=== PATIENT | female | born 1995 | race Caucasian/White ===

== ENCOUNTER 2016-06-13 17:52 | Observation (INO) | payer BC, OTHER ==
[2016-06-13] MEDS ORDERED: Sodium Chloride 0.9% 1000 ML 1,000 ML IV STA (18:18)
[2016-06-13] MEDS ORDERED: Ativan 2 MG/1 ML VIAL IV ONE (18:21)
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
[2016-06-13] MEDS ORDERED: Sodium Chloride 0.9% 1000 ML 2,000 ML ONE (18:27)
[2016-06-13] MEDS ORDERED: Ativan 2 MG/1 ML VIAL ONE ×2 (18:27→18:36)
[2016-06-13 18:30] LABS: BASOPHIL % 0.3 % (0.0-0.4); Eosinophil % 0.4 % (0.00-5.0); Mean Cell Volume 92.7 fl (78-100); Mean Corpuscular Hemoglobin 33.4 pg (26-32); Mean Platelet Volume 11.3 fl (6-9.5); Monocytes % 6.3 % (0.0-12.0); Platelet Count 161 K/mm3 (150-450); Red Cell Distribution Width 12.5 % (11.5-14.0); White Blood Count 9.7 K/mm3 (4.0-10.5)
[2016-06-13 18:39] LABS: ALBUMIN 2.9 g/dL (3.4-5.0); ALKALINE PHOSPHATASE 50 U/L (46-116); ANION GAP 19.7 MEQ/L (5-15); BLOOD UREA NITROGEN 8 mg/dL (9-20); CHLORIDE 102 mEq/L (98-107); Carbon Dioxide 18.8 mEq/L (21-32); Glucose 103 MG/DL (70-110); Potassium 3.4 mEq/L (3.5-5.1); SGOT/AST 17 U/L (15-37); SGPT/ALT 10 U/L (12-78); SODIUM 137 mEq/L (136-145); Total Protein 6.9 gm/dL (6.4-8.2)
[2016-06-13 18:45] LABS: COMPLETE URINE MICROSCOPIC? NO; Collection Type CATH; Ph 5.5 (5-6)
[2016-06-13 18:52] LABS: BILIRUBIN,TOTAL 0.1 mg/dL (0.2-1.0)
[2016-06-13 18:53] LABS: ACETAMINOPHEN < 2.0 ug/ml (10-30)
[2016-06-13] MEDS ORDERED: Ativan 2 MG/1 ML VIAL IV PRN (19:58)
[2016-06-13] MEDS: Sodium Chloride 0.9% 1000 ML 1,000 ML IV SCH (20:12)
[2016-06-14] MEDS: Sodium Chloride 0.9% 1000 ML 1,000 ML IV SCH ×3 (05:10→23:08)
[2016-06-14 05:42] LABS: Mean Cell Volume 93.9 fl (78-100); Mean Platelet Volume 11.3 fl (6-9.5); Platelet Count 178 K/mm3 (150-450); White Blood Count 9.6 K/mm3 (4.0-10.5)
[2016-06-14 05:49] LABS: Mean Corpuscular Hemoglobin 32.8 pg (26-32)
[2016-06-14 06:09] LABS: ALBUMIN 2.5 g/dL (3.4-5.0); ALKALINE PHOSPHATASE 44 U/L (46-116); ANION GAP 14.1 MEQ/L (5-15); BILIRUBIN,TOTAL 0.2 mg/dL (0.2-1.0); BLOOD UREA NITROGEN 6 mg/dL (9-20); CHLORIDE 107 mEq/L (98-107); Carbon Dioxide 22.9 mEq/L (21-32); Glucose 81 MG/DL (70-110); Potassium 3.7 mEq/L (3.5-5.1); SGOT/AST 15 U/L (15-37); SGPT/ALT 9 U/L (12-78); SODIUM 140 mEq/L (136-145)
[2016-06-14 08:10] LABS: BAND 1 % (0.0-2.0); Metamyelocyte 1 %; Platelet Estimate NORMAL (NORMAL); Total Cells Counted 100
--- NOTE | 2016-06-14 09:24 | XRAY ---
Indication: Overdose. 2-dimensional OB ultrasound performed. Comparison: None There is a single viable intrauterine currently in breech presentation. Four-chamber heart, three-vessel umbilical cord and cord insertion are not well seen due to early age. heart rate is 150 bpm. Visualized portions of the head, spine, stomach, kidneys, and bladder appear unremarkable. Placenta is anterior without abruption/previa. BPD measures 2.90 cm corresponding to 15 weeks 2 days. HC measures 10.84 cm corresponding to 15 weeks 1 day. AC measures 8.70 cm corresponding to 15 weeks 0 days. FL measures 1.53 cm corresponding to 14 weeks 4 days. TORRIE is 9.6 cm. Impression: Single viable intrauterine with mean gestational age 15 weeks 0 days. Expected date confinement is December 06, 2016.
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
[2016-06-14 21:38] VITALS: O2SAT 97
[2016-06-15 04:49] VITALS: BP 93/61
[2016-06-15 08:08] VITALS: PULSE 86
== END 2016-06-15 09:55 | disposition home or self-care (01) ==
LOC: ED 17:52 → ICU 19:49
PROVIDERS: ADMIT Family Medicine; ATTEND Family Medicine
DX: T48.1X2A Poisoning by skeletal muscle relaxants [neuromuscular blocking agents], intentional self-harm, initial encounter (principal); T42.6X2A Poisoning by other antiepileptic and sedative-hypnotic drugs, intentional self-harm, initial encounter; Z33.1 Pregnant state, incidental
CPT/HCPCS: 36415; 76805; 80053; 80307; 80320; 81002; 83986; 84703; 85025; 90791; 93005; 93041; 96360; 96374; 99284; 99285; 99291; G0378; G0481; J2060; P9612; Q3014

== ENCOUNTER 2020-01-21 14:24 | Emergency (ER) | payer BC, OTHER ==
[2020-01-21] MEDS ORDERED: Zithromax 250 MG TABLET ONE (14:50)
[2020-01-21] MEDS: Zithromax 250 MG TABLET PO ONE (14:52)
[2020-01-21] MEDS ORDERED: Rocephin 1000 MG INJ ONE (14:54)
[2020-01-21] MEDS ORDERED: XYLOCAINE 1% HCL 20 ML MDV ONE (14:54)
[2020-01-21] MEDS: Rocephin 1000 MG INJ IM ONE (14:57)
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
[2020-01-21 15:00] LABS: Appearance SLIGHTLY CLOUDY (CLEAR); Bacteria RARE /HPF (NEGATIVE); Bilirubin NEGATIVE (NEGATIVE); Blood NEGATIVE Ery/ul (0-5); Epithelial Cells RARE /HPF (FEW); Glucose NEGATIVE (NEGATIVE); Ketones NEGATIVE (NEGATIVE); Leukocyte Esterase TRACE (NEGATIVE); Nitrite NEGATIVE (NEGATIVE); Protein,Urine Dip NEGATIVE (Negative); RBC 0-2 /HPF (0-2); Urobilinogen NEGATIVE mg/dL (0-1)
[2020-01-21 16:23] LABS: Clue Cells None Seen
[2020-01-21 16:24] LABS: Bacteria Few; Red Blood Cells None Seen; Trichomonas None Seen; White Blood Cells Few; Yeast None Seen
[2020-01-21 16:31] LABS: CHLAMYDIA DNA NOT DETECTED (NEGATIVE); GC DNA Probe DETECTED (NEGATIVE)
== END 2020-01-21 16:06 | disposition home or self-care (01) ==
LOC: ED 14:24
DX: A54.9 Gonococcal infection, unspecified (principal)
CPT/HCPCS: 36415; 81001; 84703; 86592; 86704; 86706; 86709; 86803; 87210; 87340; 87389; 87491; 87591; 96372; 99284; J0696; A9270-GY

== ENCOUNTER 2020-02-16 11:32 | Emergency (ER) | payer OTHER ==
[2020-02-16] MEDS ORDERED: Ativan 2 MG/1 ML VIAL ONE ×2 (11:39→12:24)
[2020-02-16] MEDS ORDERED: Zofran 4 MG/2 ML VIAL ONE (11:43)
[2020-02-16] MEDS ORDERED: Zofran 4 MG/2 ML VIAL IV ONE (11:44)
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
[2020-02-16] MEDS ORDERED: Sodium Chloride 0.9% 1000 ML 1,000 ML IV SCH ×2 (11:45→13:00)
[2020-02-16] MEDS ORDERED: Ativan 2 MG/1 ML VIAL IV ONE ×2 (11:46→12:26)
[2020-02-16] MEDS ORDERED: Sodium Chloride 0.9% 1000 ML 1,000 ML ONE ×2 (11:51→12:55)
[2020-02-16 12:06] LABS: Absolute Neutrophil Ct (ANC) 7.55 (1.4-6.9); BASOPHIL % 0.5 % (0.0-0.4); Basophil (Absolute #) 0.06 (0-0.4); Eosinophil (Absolute #) 0.39 (0-0.5); Hemoglobin 14.6 gm/dl (12.0-16.0); Lymphocyte (Absolute #) 3.94 (1.0-4.6); Lymphocytes % 30.1 % (24.0-44.0); Mean Cell Volume 99.1 fl (78-100); Mean Corpuscular Hemoglobin 32.9 pg (26-32); Mean Corpuscular Hgb Concent. 33.2 g/dl (32-36); Mean Platelet Volume 11.6 fl (7.5-11.0); Monocyte (Absolute #) 1.13 (0.0-1.3); Monocytes % 8.6 % (0.0-12.0); Neutrophil % 57.8 % (36.0-66.0); Platelet Count 285 K/mm3 (150-450); Red Blood Count 4.44 M/mm3 (4.1-5.4); Red Cell Distribution Width 13.8 % (11.5-14.0); White Blood Count 13.1 K/mm3 (4.0-10.5)
[2020-02-16 12:12] LABS: ALBUMIN 5.1 g/dL (3.5-5.0); ALKALINE PHOSPHATASE 76 U/L (38-126); ANION GAP 13.1 MEQ/L (5-15); BLOOD UREA NITROGEN 13 mg/dL (7-17); CHLORIDE 108 mmol/L (98-107); Calcium 9.6 mg/dL (8.4-10.2); Carbon Dioxide 23 mmol/L (22-30); Creatinine 1 0.73 mg/dL (0.52-1.04); EST GLOMERULAR FILTRATION RATE > 60.0 ML/MIN; Glucose 139 mg/dL (74-106); Potassium 3.6 mmol/L (3.5-5.1); SGOT/AST 36 U/L (14-36); SGPT/ALT 19 U/L (0-35); SODIUM 140 mmol/L (137-145); Total Protein 8.3 g/dL (6.3-8.2)
[2020-02-16 12:23] LABS: ACETAMINOPHEN < 10 ug/ml (10-30); SALICYLATE < 1.0 mg/dL (2-20)
[2020-02-16 12:24] LABS: ETHYL ALCOHOL < 10 mg/dL (0-10)
[2020-02-16 12:45] LABS: Appearance SLIGHTLY CLOUDY (CLEAR); Bilirubin NEGATIVE (NEGATIVE); Blood NEGATIVE Ery/ul (0-5); Epithelial Cells RARE /HPF (FEW); Glucose NEGATIVE (NEGATIVE); Ketones SMALL (NEGATIVE); Leukocyte Esterase SMALL (NEGATIVE); Mucus MANY /HPF (NEGATIVE); Nitrite NEGATIVE (NEGATIVE); Protein,Urine Dip 30 (Negative); RBC 0-2 /HPF (0-2); Specific Gravity 1.028 (1.005-1.025); Urobilinogen NEGATIVE mg/dL (0-1); WBC 0-2 /HPF (0-5)
[2020-02-16 13:12] LABS: Amphetamine,Urine NEGATIVE (NEGATIVE); Barbiturate,Urine NEGATIVE (NEGATIVE); Benzodiazepine,Urine NEGATIVE (NEGATIVE); Cocaine,Urine NEGATIVE (NEGATIVE); Methadone,Urine NEGATIVE (NEGATIVE); Opiate,Urine NEGATIVE (NEGATIVE); PCP,Urine NEGATIVE (NEGATIVE)
[2020-02-16 13:19] VITALS: O2SAT 98
[2020-02-16 13:44] LABS: THC,Urine POSITIVE (NEGATIVE)
[2020-02-16 13:57] VITALS: BP 112/69; PULSE 102
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
== END 2020-02-16 13:57 | disposition home or self-care (01) ==
LOC: ED 11:32
DX: F41.9 Anxiety disorder, unspecified (principal); F31.9 Bipolar disorder, unspecified; G40.909 Epilepsy, unspecified, not intractable, without status epilepticus; Z79.899 Other long term (current) drug therapy
CPT/HCPCS: 36000; 36415; 70450; 80053; 80307; 81001; 82962; 83605; 84703; 85025; 87086; 93005; 93041; 96360; 96374; 96375; 96376; 99285; G0480; P9612; J2060; J2405

== ENCOUNTER 2020-03-09 14:16 | Emergency (ER) | payer OTHER ==
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
[2020-03-09 15:17] LABS: Absolute Neutrophil Ct (ANC) 4.46 (1.4-6.9); BASOPHIL % 0.9 % (0.0-0.4); Basophil (Absolute #) 0.06 (0-0.4); Eosinophil % 1.8 % (0.00-5.0); Eosinophil (Absolute #) 0.12 (0-0.5); Hematocrit 41.6 % (35-47); Hemoglobin 14.2 gm/dl (12.0-16.0); Lymphocyte (Absolute #) 1.43 (1.0-4.6); Mean Cell Volume 97.4 fl (78-100); Mean Corpuscular Hemoglobin 33.3 pg (26-32); Mean Corpuscular Hgb Concent. 34.1 g/dl (32-36); Mean Platelet Volume 10.7 fl (7.5-11.0); Monocyte (Absolute #) 0.44 (0.0-1.3); Monocytes % 6.8 % (0.0-12.0); Neutrophil % 68.5 % (36.0-66.0); Platelet Count 214 K/mm3 (150-450); Red Blood Count 4.27 M/mm3 (4.1-5.4); Red Cell Distribution Width 13.2 % (11.5-14.0); White Blood Count 6.5 K/mm3 (4.0-10.5)
[2020-03-09 15:35] LABS: ALBUMIN 4.6 g/dL (3.5-5.0); ALKALINE PHOSPHATASE 62 U/L (38-126); BLOOD UREA NITROGEN 15 mg/dL (7-17); CHLORIDE 106 mmol/L (98-107); Calcium 9.4 mg/dL (8.4-10.2); Carbon Dioxide 24 mmol/L (22-30); Creatinine 1 0.84 mg/dL (0.52-1.04); EST GLOMERULAR FILTRATION RATE > 60.0 ML/MIN; Glucose 90 mg/dL (74-106); Potassium 4.2 mmol/L (3.5-5.1); SGOT/AST 26 U/L (14-36); SGPT/ALT 15 U/L (0-35); SODIUM 138 mmol/L (137-145); Total Protein 7.8 g/dL (6.3-8.2)
[2020-03-09 16:01] LABS: Appearance CLOUDY (CLEAR); Bilirubin NEGATIVE (NEGATIVE); Blood NEGATIVE Ery/ul (0-5); Glucose NEGATIVE (NEGATIVE); Ketones TRACE (NEGATIVE); Leukocyte Esterase NEGATIVE (NEGATIVE); Mucus SLIGHT /HPF (NEGATIVE); Nitrite NEGATIVE (NEGATIVE); Protein,Urine Dip 30 (Negative); RBC 0-2 /HPF (0-2); Specific Gravity 1.014 (1.005-1.025); Urobilinogen NEGATIVE mg/dL (0-1)
[2020-03-09 16:15] VITALS: BP 110/66; PULSE 88; O2SAT 98
== END 2020-03-09 16:19 | disposition home or self-care (01) ==
LOC: ED 14:16
DX: G40.909 Epilepsy, unspecified, not intractable, without status epilepticus (principal)
CPT/HCPCS: 36415; 80053; 81001; 84703; 85025; 99283

== ENCOUNTER 2020-03-11 11:07 | Emergency (ER) | payer OTHER ==
[2020-03-11] MEDS ORDERED: Ativan 2 MG/1 ML VIAL IV ONE (11:12)
[2020-03-11] MEDS ORDERED: Ativan 2 MG/1 ML VIAL ONE (11:15)
[2020-03-11] MEDS ORDERED: Sodium Chloride 0.9% 1000 ML 1,000 ML IV SCH (11:15)
[2020-03-11] MEDS ORDERED: Sodium Chloride 0.9% 1000 ML 1,000 ML ONE (11:20)
--- NOTE | 2020-03-11 11:47 | XRAY ---
Indication: Aspiration. Comparison: None Portable chest demonstrates normal heart, lungs, and bony thorax.
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
[2020-03-11 11:58] LABS: Absolute Neutrophil Ct (ANC) 3.96 (1.4-6.9); BASOPHIL % 0.9 % (0.0-0.4); Basophil (Absolute #) 0.06 (0-0.4); Eosinophil (Absolute #) 0.19 (0-0.5); Hemoglobin 15.5 gm/dl (12.0-16.0); Lymphocytes % 26.6 % (24.0-44.0); Mean Cell Volume 98.9 fl (78-100); Mean Corpuscular Hemoglobin 34.1 pg (26-32); Mean Corpuscular Hgb Concent. 34.4 g/dl (32-36); Mean Platelet Volume 12.8 fl (7.5-11.0); Monocyte (Absolute #) 0.48 (0.0-1.3); Monocytes % 7.5 % (0.0-12.0); Platelet Count 195 K/mm3 (150-450); Red Blood Count 4.55 M/mm3 (4.1-5.4); Red Cell Distribution Width 13.4 % (11.5-14.0); White Blood Count 6.4 K/mm3 (4.0-10.5)
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
[2020-03-11] MEDS ORDERED: Keppra 500 MG/5 ML*** 1,000 MG in D5w 100ML Mini Bag 100 ML 100 ML IV ONE (12:24)
[2020-03-11] MEDS ORDERED: Keppra 500 MG/5 ML ONE (12:30)
[2020-03-11] MEDS ORDERED: D5w 100ML Mini Bag 100 ML 100 ML IV ONE (12:30)
[2020-03-11 12:39] LABS: ALBUMIN 4.6 g/dL (3.5-5.0); ALKALINE PHOSPHATASE 61 U/L (38-126); ANION GAP 12.9 MEQ/L (5-15); BLOOD UREA NITROGEN 16 mg/dL (7-17); CHLORIDE 107 mmol/L (98-107); Calcium 9.6 mg/dL (8.4-10.2); Carbon Dioxide 22 mmol/L (22-30); Creatinine 1 0.87 mg/dL (0.52-1.04); EST GLOMERULAR FILTRATION RATE > 60.0 ML/MIN; Glucose 94 mg/dL (74-106); Potassium 4.3 mmol/L (3.5-5.1); SGOT/AST 21 U/L (14-36); SGPT/ALT 13 U/L (0-35); SODIUM 137 mmol/L (137-145); Total Protein 7.5 g/dL (6.3-8.2)
[2020-03-11 12:45] LABS: ACETAMINOPHEN < 10 ug/ml (10-30); ETHYL ALCOHOL < 10 mg/dL (0-10); SALICYLATE < 1.0 mg/dL (2-20)
[2020-03-11 12:58] LABS: Appearance SLIGHTLY CLOUDY (CLEAR); Bilirubin NEGATIVE (NEGATIVE); Blood NEGATIVE Ery/ul (0-5); Epithelial Cells RARE /HPF (FEW); Glucose NEGATIVE (NEGATIVE); Ketones SMALL (NEGATIVE); Leukocyte Esterase NEGATIVE (NEGATIVE); Mucus SLIGHT /HPF (NEGATIVE); Nitrite NEGATIVE (NEGATIVE); Protein,Urine Dip 30 (Negative); Urobilinogen NEGATIVE mg/dL (0-1); WBC 0-2 /HPF (0-5)
[2020-03-11 13:09] LABS: Amphetamine,Urine NEGATIVE (NEGATIVE); Barbiturate,Urine NEGATIVE (NEGATIVE); Benzodiazepine,Urine NEGATIVE (NEGATIVE); Cocaine,Urine NEGATIVE (NEGATIVE); Methadone,Urine NEGATIVE (NEGATIVE); Opiate,Urine NEGATIVE (NEGATIVE); PCP,Urine NEGATIVE (NEGATIVE); THC,Urine POSITIVE (NEGATIVE)
[2020-03-11 15:07] VITALS: BP 106/68; PULSE 87
[2020-03-12 02:43] VITALS: O2SAT 99
== END 2020-03-11 16:19 | disposition short-term general hospital (02) ==
LOC: ED 11:07
DX: G40.909 Epilepsy, unspecified, not intractable, without status epilepticus (principal)
CPT/HCPCS: 36000; 36415; 70450; 71045; 72125; 80053; 80307; 81001; 84703; 85025; 87040; 93005; 93041; 96360; 96361; 96374; 99285; G0480; J1953; J2060

== ENCOUNTER 2020-04-28 23:32 | Emergency (ER) | payer OTHER ==
[2020-04-29 00:39] VITALS: O2SAT 98
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
[2020-04-29 01:15] VITALS: BP 107/75; PULSE 52
== END 2020-04-29 01:16 | disposition home or self-care (01) ==
LOC: ED 23:32
DX: U07.1 COVID-19 (principal); R51.9 Headache, unspecified; R11.10 Vomiting, unspecified; R68.83 Chills (without fever); R43.8 Other disturbances of smell and taste; M79.10 Myalgia, unspecified site
CPT/HCPCS: 99283; U0003

== ENCOUNTER 2020-11-28 08:37 | Emergency (ER) | payer OTHER ==
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
[2020-11-28 08:54] VITALS: O2SAT 97
[2020-11-28 09:22] LABS: Absolute Neutrophil Ct (ANC) 4.91 (1.4-6.9); BASOPHIL % 0.4 % (0.0-0.4); Basophil (Absolute #) 0.03 (0-0.4); Eosinophil % 3.5 % (0.00-5.0); Eosinophil (Absolute #) 0.26 (0-0.5); Hematocrit 43.2 % (35-47); Hemoglobin 14.2 gm/dl (12.0-16.0); Lymphocyte (Absolute #) 1.53 (1.0-4.6); Lymphocytes % 20.8 % (24.0-44.0); Mean Cell Volume 98.2 fl (78-100); Mean Corpuscular Hemoglobin 32.3 pg (26-32); Mean Corpuscular Hgb Concent. 32.9 g/dl (32-36); Monocyte (Absolute #) 0.61 (0.0-1.3); Monocytes % 8.3 % (0.0-12.0); Platelet Count 199 K/mm3 (150-450); Red Cell Distribution Width 12.9 % (11.5-14.0); White Blood Count 7.3 K/mm3 (4.0-10.5)
[2020-11-28 09:23] LABS: ACETAMINOPHEN < 10 ug/ml (10-30); ALBUMIN 4.4 g/dL (3.5-5.0); ALKALINE PHOSPHATASE 51 U/L (38-126); ANION GAP 20.1 MEQ/L (5-15); BLOOD UREA NITROGEN 12 mg/dL (7-17); CHLORIDE 107 mmol/L (98-107); Calcium 9.4 mg/dL (8.4-10.2); Carbon Dioxide 17 mmol/L (22-30); Creatinine 1 0.85 mg/dL (0.52-1.04); EST GLOMERULAR FILTRATION RATE > 60.0 ML/MIN; ETHYL ALCOHOL < 10 mg/dL (0-10); Glucose 121 mg/dL (74-106); Potassium 4.1 mmol/L (3.5-5.1); SALICYLATE < 1.0 mg/dL (2-20); SGOT/AST 22 U/L (14-36); SGPT/ALT 13 U/L (0-35); SODIUM 140 mmol/L (137-145); Total Protein 7.2 g/dL (6.3-8.2)
[2020-11-28 09:25] LABS: Appearance CLEAR (CLEAR); Bilirubin NEGATIVE (NEGATIVE); Blood SMALL Ery/ul (0-5); Epithelial Cells RARE /HPF (FEW); Glucose NEGATIVE (NEGATIVE); Hyaline Casts 0-2 /LPF (0-2); Ketones NEGATIVE (NEGATIVE); Leukocyte Esterase NEGATIVE (NEGATIVE); Nitrite NEGATIVE (NEGATIVE); Protein,Urine Dip 30 (Negative); Specific Gravity 1.016 (1.005-1.025); Urobilinogen NEGATIVE mg/dL (0-1); WBC 0-2 /HPF (0-5)
[2020-11-28 09:26] LABS: Bacteria NONE SEEN /HPF (NEGATIVE); RBC NONE SEEN /HPF (0-2)
[2020-11-28 09:50] LABS: Amphetamine,Urine NEGATIVE (NEGATIVE); Barbiturate,Urine NEGATIVE (NEGATIVE); Benzodiazepine,Urine NEGATIVE (NEGATIVE); Cocaine,Urine NEGATIVE (NEGATIVE); Methadone,Urine NEGATIVE (NEGATIVE); Opiate,Urine NEGATIVE (NEGATIVE); PCP,Urine NEGATIVE (NEGATIVE); THC,Urine POSITIVE (NEGATIVE)
[2020-11-28] MEDS ORDERED: NORCO 5/325 MG PO ONE (10:45)
[2020-11-28] MEDS ORDERED: Ativan 2 MG/1 ML VIAL IV ONE (10:45)
[2020-11-28] MEDS ORDERED: NORCO 5/325 MG ONE (10:49)
[2020-11-28] MEDS ORDERED: Ativan 2 MG/1 ML VIAL ONE (10:49)
--- NOTE | 2020-11-28 10:49 | XRAY ---
Exam: CT of the head without IV contrast from 11/28/2020. CTDI: 53.92 mGy Comparison: CT of the head without IV contrast from 03/11/2020. Indication: 25-year-old female with seizure today, confused, headache, neck pain. Technique: Non-IV contrast axial images were obtained through the brain. Reconstructed coronal and sagittal images were created and reviewed. Findings: The ventricles appear of normal size and in configuration. No focal mass effect or midline shift is seen. No acute intracranial bleed or abnormal extra-axial fluid collection is seen. The ramirez matter-white matter interfaces appear unremarkable. No low attenuation infarct is seen within a major cerebral or cerebellar artery distribution. Structures of the posterior fossa appear unremarkable. The cortical sulci and basilar cisterns appear normal. The calvarium of the skull appears intact. The visualized paranasal sinuses are clear, except for scant mucosal thickening within the sphenoid sinus. There is a aplasia of the frontal sinuses. The mastoid air cells are clear without effusion. The middle ear cavities appear unremarkable. The orbits appear grossly unremarkable. A couple small metallic densities are seen overlying the lateral right face which may represent jewelry/ornamentation. Correlate clinically. Impression: 1. No acute intracranial abnormality is seen, no change from 03/11/2020.
--- NOTE | 2020-11-28 10:54 | XRAY ---
Exam: CT of the cervical spine without IV contrast from 11/28/2020. CTDI: 44.64 mGy Comparison: CT of the cervical spine without IV contrast from 03/11/2020. Indication: 25-year-old female had seizure today, complains of neck pain and headache. Technique: Non-IV contrast axial images were obtained through the cervical spine. Reconstructed coronal and sagittal images were created and reviewed. Findings: I see no acute cervical spine fracture, AP traumatic subluxation, or prevertebral soft tissue swelling. There is mild reversal the normal cervical lordosis centered at C5. This could be due to patient positioning or posterior paravertebral muscular spasm. No jumped or perched facet joints are seen on the sagittal images. The cervical interspace heights are well-maintained. I see no evidence of central canal spinal stenosis. No neural foraminal stenosis is seen. The thyroid gland appears grossly unremarkable. The visualized lung apices appear unremarkable. Some small scattered nonspecific lymph node densities are seen within the neck. No definite pathological lymphadenopathy is seen. Impression: 1. There is some mild reversal of the normal cervical lordosis centered at C5 which may be positional or due to spasm. 2. Otherwise, no cervical spine fracture, AP subluxation, or prevertebral soft tissue swelling is seen. The remainder of the study appears unremarkable.
[2020-11-28 10:59] VITALS: BP 115/70; PULSE 68
== END 2020-11-28 11:32 | disposition home or self-care (01) ==
LOC: ED 08:37
DX: G40.909 Epilepsy, unspecified, not intractable, without status epilepticus (principal); Z91.14 Patient's other noncompliance with medication regimen
CPT/HCPCS: 36415; 70450; 72125; 80053; 80164; 80307; 81001; 84703; 85025; 96374; 99284; G0480; J2060; A9270-GY

== ENCOUNTER 2021-02-14 10:18 | Emergency (ER) | payer OTHER ==
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
[2021-02-14 23:53] VITALS: O2SAT 96
== END 2021-02-14 10:40 | disposition left against medical advice (07) ==
LOC: ED 10:18
DX: G40.909 Epilepsy, unspecified, not intractable, without status epilepticus (principal)
CPT/HCPCS: 99282

== ENCOUNTER 2021-04-22 10:51 | Emergency (ER) | payer OTHER ==
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
[2021-04-22] MEDS ORDERED: TYLENOL 325 MG ONE (11:39)
[2021-04-22] MEDS ORDERED: TYLENOL 325 MG PO STA (11:39)
--- NOTE | 2021-04-22 11:41 | XRAY ---
Indication: Left head/face swelling and laceration following fall. Possible seizure. Multiple contiguous axial images obtained through the head without contrast. Comparison: November 28, 2020. Normal appearing brain parenchyma, ventricles, and bony calvarium. New mild right supraorbital soft tissue swelling. Visualized paranasal sinuses and mastoid air cells are clear. Impression: Right supraorbital soft tissue swelling. Continued normal CT head without contrast exam.
--- NOTE | 2021-04-22 11:43 | XRAY ---
Indication: Left head/face swelling and laceration following fall. Multiple contiguous axial images obtained through the facial bones. Sagittal and coronal reformatted images obtained. Comparison: None Mild right supraorbital soft tissue swelling. Multiple nasal jewelry. Otherwise no acute fracture, suspicious bony lesions, or radiopaque foreign body. Orbits including roof, schuler, and floors are intact. Paranasal sinuses and nasal passages are clear. Very minimal nasal septal deviation to the left. Remaining visualized noncontrasted soft tissues are unremarkable. Visualized cervical spine intact. Impression: Right supraorbital soft tissue swelling. Remaining CT facial bones is negative.
[2021-04-22 12:16] LABS: Hematocrit 45.7 % (35-47); Hemoglobin 14.9 gm/dl (12.0-16.0); Mean Cell Volume 100.9 fl (78-100); Mean Corpuscular Hemoglobin 32.9 pg (26-32); Mean Corpuscular Hgb Concent. 32.6 g/dl (32-36); Mean Platelet Volume 11.5 fl (7.5-11.0); Platelet Count 205 K/mm3 (150-450); Red Blood Count 4.53 M/mm3 (4.1-5.4); Red Cell Distribution Width 12.9 % (11.5-14.0); White Blood Count 16.9 K/mm3 (4.0-10.5)
[2021-04-22 12:23] LABS: Appearance SLIGHTLY CLOUDY (CLEAR); Bilirubin NEGATIVE (NEGATIVE); Blood SMALL Ery/ul (0-5); Glucose NEGATIVE (NEGATIVE); Hyaline Casts 0-2 /LPF (0-2); Ketones NEGATIVE (NEGATIVE); Leukocyte Esterase NEGATIVE (NEGATIVE); Mucus SLIGHT /HPF (NEGATIVE); Nitrite NEGATIVE (NEGATIVE); Protein,Urine Dip 30 (Negative); Specific Gravity 1.014 (1.005-1.025); Urobilinogen NEGATIVE mg/dL (0-1); WBC 0-2 /HPF (0-5)
[2021-04-22 12:37] LABS: ACETAMINOPHEN < 10 ug/ml (10-30); ALBUMIN 4.6 g/dL (3.5-5.0); ALKALINE PHOSPHATASE 65 U/L (38-126); ANION GAP 12.5 MEQ/L (5-15); BLOOD UREA NITROGEN 11 mg/dL (7-17); CHLORIDE 109 mmol/L (98-107); Carbon Dioxide 23 mmol/L (22-30); Creatinine 1 0.84 mg/dL (0.52-1.04); EST GLOMERULAR FILTRATION RATE > 60.0 ML/MIN; ETHYL ALCOHOL < 10 mg/dL (0-10); Glucose 114 mg/dL (74-106); Potassium 3.6 mmol/L (3.5-5.1); SALICYLATE < 1.0 mg/dL (2-20); SGOT/AST 25 U/L (14-36); SGPT/ALT 15 U/L (0-35); SODIUM 141 mmol/L (137-145); Total Protein 7.5 g/dL (6.3-8.2)
[2021-04-22 12:38] LABS: Amphetamine,Urine NEGATIVE (NEGATIVE); Barbiturate,Urine NEGATIVE (NEGATIVE); Benzodiazepine,Urine NEGATIVE (NEGATIVE); Cocaine,Urine NEGATIVE (NEGATIVE); Methadone,Urine NEGATIVE (NEGATIVE); Opiate,Urine NEGATIVE (NEGATIVE); PCP,Urine NEGATIVE (NEGATIVE); THC,Urine POSITIVE (NEGATIVE)
[2021-04-22 13:28] VITALS: BP 106/72; PULSE 68; O2SAT 98
[2021-04-22 14:04] LABS: BAND 2 % (0.0-2.0); Lymphocytes 9 % (24-44); Monocyte 3 % (0.0-12.0); Neutrophils 86 % (36.0-66.0); Platelet Estimate NORMAL (NORMAL); Total Cells Counted 100
== END 2021-04-22 13:30 | disposition home or self-care (01) ==
LOC: ED 10:51
DX: G40.909 Epilepsy, unspecified, not intractable, without status epilepticus (principal); Z02.89 Encounter for other administrative examinations; Z72.0 Tobacco use
CPT/HCPCS: 36415; 70450; 70486; 80053; 80307; 81001; 85025; 93005; 99284; G0480; A9270-GY

== ENCOUNTER 2021-04-27 00:56 | Emergency (ER) | payer OTHER ==
[2021-04-27 01:16] VITALS: O2SAT 98
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
[2021-04-27 01:40] LABS: Absolute Neutrophil Ct (ANC) 4.37 (1.4-6.9); Basophil (Absolute #) 0.04 (0-0.4); Eosinophil % 1.2 % (0.00-5.0); Eosinophil (Absolute #) 0.09 (0-0.5); Hematocrit 44.2 % (35-47); Hemoglobin 15.2 gm/dl (12.0-16.0); Lymphocyte (Absolute #) 2.46 (1.0-4.6); Lymphocytes % 32.2 % (24.0-44.0); Mean Cell Volume 96.5 fl (78-100); Mean Corpuscular Hemoglobin 33.2 pg (26-32); Mean Corpuscular Hgb Concent. 34.4 g/dl (32-36); Monocyte (Absolute #) 0.69 (0.0-1.3); Neutrophil % 57.1 % (36.0-66.0); Platelet Count 225 K/mm3 (150-450); Red Blood Count 4.58 M/mm3 (4.1-5.4); Red Cell Distribution Width 12.5 % (11.5-14.0); White Blood Count 7.7 K/mm3 (4.0-10.5)
[2021-04-27 01:58] LABS: ALKALINE PHOSPHATASE 75 U/L (38-126); ANION GAP 17.4 MEQ/L (5-15); BLOOD UREA NITROGEN 13 mg/dL (7-17); CHLORIDE 108 mmol/L (98-107); Calcium 9.7 mg/dL (8.4-10.2); Carbon Dioxide 19 mmol/L (22-30); Creatinine 1 0.81 mg/dL (0.52-1.04); Direct Bilirubin 0.3 mg/dL (0.0-0.4); EST GLOMERULAR FILTRATION RATE > 60.0 ML/MIN; Glucose 98 mg/dL (74-106); Potassium 3.7 mmol/L (3.5-5.1); SGOT/AST 48 U/L (14-36); SGPT/ALT 23 U/L (0-35); SODIUM 141 mmol/L (137-145); Total Protein 8.1 g/dL (6.3-8.2)
[2021-04-27 02:10] VITALS: BP 107/82; PULSE 92
== END 2021-04-27 02:20 | disposition home or self-care (01) ==
LOC: ED 00:56
DX: R56.9 Unspecified convulsions (principal); F12.90 Cannabis use, unspecified, uncomplicated; M25.562 Pain in left knee; Z72.0 Tobacco use
CPT/HCPCS: 36415; 80048; 80076; 83605; 84703; 85025; 99284

== ENCOUNTER 2021-04-28 00:21 | Observation (INO) | payer OTHER ==
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
[2021-04-28] MEDS ORDERED: Ativan 2 MG/1 ML VIAL IV ONE ×2 (00:29→01:16)
[2021-04-28] MEDS ORDERED: Zofran 4 MG/2 ML VIAL IV ONE (00:29)
[2021-04-28] MEDS ORDERED: Ativan 2 MG/1 ML VIAL ONE ×2 (00:47→01:19)
[2021-04-28] MEDS ORDERED: Zofran 4 MG/2 ML VIAL ONE (00:47)
[2021-04-28 00:51] LABS: Basophil (Absolute #) 0.05 (0-0.4); Eosinophil % 2.1 % (0.00-5.0); Eosinophil (Absolute #) 0.18 (0-0.5); Hemoglobin 14.8 gm/dl (12.0-16.0); Lymphocyte (Absolute #) 2.83 (1.0-4.6); Lymphocytes % 33.3 % (24.0-44.0); Mean Cell Volume 97.1 fl (78-100); Mean Corpuscular Hemoglobin 33.4 pg (26-32); Mean Corpuscular Hgb Concent. 34.4 g/dl (32-36); Mean Platelet Volume 11.4 fl (7.5-11.0); Monocyte (Absolute #) 0.83 (0.0-1.3); Monocytes % 9.8 % (0.0-12.0); Neutrophil % 54.2 % (36.0-66.0); Platelet Count 228 K/mm3 (150-450); Red Blood Count 4.43 M/mm3 (4.1-5.4); Red Cell Distribution Width 12.4 % (11.5-14.0); White Blood Count 8.5 K/mm3 (4.0-10.5)
[2021-04-28 01:04] LABS: ALBUMIN 4.6 g/dL (3.5-5.0); ALKALINE PHOSPHATASE 76 U/L (38-126); ANION GAP 14.4 MEQ/L (5-15); BLOOD UREA NITROGEN 15 mg/dL (7-17); CHLORIDE 108 mmol/L (98-107); Calcium 9.4 mg/dL (8.4-10.2); Carbon Dioxide 20 mmol/L (22-30); Creatinine 1 0.83 mg/dL (0.52-1.04); EST GLOMERULAR FILTRATION RATE > 60.0 ML/MIN; Glucose 105 mg/dL (74-106); Potassium 3.5 mmol/L (3.5-5.1); SGOT/AST 38 U/L (14-36); SGPT/ALT 20 U/L (0-35); SODIUM 139 mmol/L (137-145); Total Protein 7.4 g/dL (6.3-8.2)
[2021-04-28] MEDS ORDERED: Sodium Chloride 0.9% 1000 ML 1,000 ML ONE (03:08)
[2021-04-28 03:17] LABS: INFLUENZA A NEGATIVE (NEGATIVE); INFLUENZA B NEGATIVE (NEGATIVE); RESPIRATORY SYNCTIAL VIRUS NEGATIVE (Negative); SARS-CoV-2 Xpert Express NEGATIVE (NEGATIVE)
[2021-04-28] MEDS ORDERED: Sodium Chloride 0.9% 1000 ML 1,000 ML IV STA (03:17)
[2021-04-28] MEDS ORDERED: Zofran 4 MG/2 ML VIAL IV PRN (05:42)
--- NOTE | 2021-04-28 08:50 | XRAY ---
Indication: Seizure. Multiple contiguous axial images obtained through the head without contrast. Comparison: April 22, 2021. Normal appearing brain parenchyma, ventricles, and bony calvarium. Visualized paranasal sinuses and mastoid air cells are clear. Impression: Continued normal CT head without contrast exam. Comment: Preliminary interpretation made by [facility]. No critical discrepancy.
[2021-04-28 09:10] LABS: Appearance SLIGHTLY CLOUDY (CLEAR); Bilirubin NEGATIVE (NEGATIVE); Blood SMALL Ery/ul (0-5); Epithelial Cells RARE /HPF (FEW); Glucose NEGATIVE (NEGATIVE); Ketones NEGATIVE (NEGATIVE); Leukocyte Esterase NEGATIVE (NEGATIVE); Mucus SLIGHT /HPF (NEGATIVE); Nitrite NEGATIVE (NEGATIVE); Protein,Urine Dip NEGATIVE (Negative); Specific Gravity 1.026 (1.005-1.025); Urobilinogen 4 mg/dL (0-1)
[2021-04-28 09:25] LABS: Amphetamine,Urine NEGATIVE (NEGATIVE); Barbiturate,Urine NEGATIVE (NEGATIVE); Benzodiazepine,Urine POSITIVE (NEGATIVE); Cocaine,Urine NEGATIVE (NEGATIVE); Methadone,Urine NEGATIVE (NEGATIVE); Opiate,Urine NEGATIVE (NEGATIVE); PCP,Urine NEGATIVE (NEGATIVE); THC,Urine POSITIVE (NEGATIVE)
[2021-04-28] MEDS ORDERED: Keppra 500 MG/5 ML*** 1,000 MG in D5w 100ML Mini Bag 100 ML 100 ML IV ONE (12:38)
[2021-04-28] MEDS: DEXTROSE 5% -NACL 0.9% 1000 ML + KCl 20 MEQ 1,000 ML IV SCH ×2 (12:45→23:04)
[2021-04-28] MEDS ORDERED: XYLOCAINE VISCOUS 2% 20 ML CUP PO ONE (16:17)
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
[2021-04-28] MEDS ORDERED: Ativan 2 MG/1 ML VIAL IV PRN (17:05)
[2021-04-28] MEDS ORDERED: XYLOCAINE HCl Viscous MM PRN (17:42)
[2021-04-28] MEDS ORDERED: NON-FORMULARY ITEM (Topiramate [Topamax] 25 MG Tablet) PO SCH (22:00)
[2021-04-28] MEDS: TOPIRAMATE PO SCH (22:27)
[2021-04-29] MEDS: TYLENOL 325 MG PO PRN ×2 (03:11→08:28)
[2021-04-29] MEDS: XYLOCAINE VISCOUS 2% 20 ML CUP MM PRN ×3 (03:19→12:37)
[2021-04-29] MEDS: Ativan 2 MG/1 ML VIAL IV PRN ×2 (04:59→08:23)
[2021-04-29 05:38] LABS: Absolute Neutrophil Ct (ANC) 3.21 (1.4-6.9); Basophil (Absolute #) 0.03 (0-0.4); Eosinophil % 3.1 % (0.00-5.0); Eosinophil (Absolute #) 0.17 (0-0.5); Hematocrit 41.3 % (35-47); Hemoglobin 13.8 gm/dl (12.0-16.0); Lymphocytes % 27.7 % (24.0-44.0); Mean Cell Volume 99.3 fl (78-100); Mean Corpuscular Hemoglobin 33.2 pg (26-32); Mean Corpuscular Hgb Concent. 33.4 g/dl (32-36); Mean Platelet Volume 11.5 fl (7.5-11.0); Monocytes % 9.2 % (0.0-12.0); Neutrophil % 59.4 % (36.0-66.0); Platelet Count 190 K/mm3 (150-450); Red Blood Count 4.16 M/mm3 (4.1-5.4); Red Cell Distribution Width 12.4 % (11.5-14.0); White Blood Count 5.4 K/mm3 (4.0-10.5)
[2021-04-29 07:22] LABS: ALKALINE PHOSPHATASE 64 U/L (38-126); ANION GAP 12.8 MEQ/L (5-15); BLOOD UREA NITROGEN 11 mg/dL (7-17); CHLORIDE 113 mmol/L (98-107); Calcium 8.6 mg/dL (8.4-10.2); Carbon Dioxide 17 mmol/L (22-30); Creatinine 1 0.73 mg/dL (0.52-1.04); EST GLOMERULAR FILTRATION RATE > 60.0 ML/MIN; Glucose 104 mg/dL (74-106); MAGNESIUM 1.9 mg/dL (1.6-2.3); Potassium 3.6 mmol/L (3.5-5.1); SGOT/AST 28 U/L (14-36); SGPT/ALT 16 U/L (0-35); SODIUM 140 mmol/L (137-145); TSH, 3RD Generation 0.445 mIU/L (0.47-4.68); Total Protein 6.7 g/dL (6.3-8.2)
[2021-04-29] MEDS: DEXTROSE 5% -NACL 0.9% 1000 ML + KCl 20 MEQ 1,000 ML IV SCH (08:23)
[2021-04-29] MEDS ORDERED: Sodium Chloride 0.9% 500 ML 500 ML IV ONE (08:29)
[2021-04-29] MEDS: TOPIRAMATE PO SCH (08:29)
--- NOTE | 2021-04-29 08:47 | PCM.NOTE ---
Date and Time: 04/29/21 08 Subjective Assessment: Pt is not speaking this morning. She is cooperative and does indicate that her head hurts all morning, indicates R superior scalp. Pt could not hold still for MRI yesterday so the plan is to do one today - her (previous foster mother?) is here with her to assist, and she will be given IV ativan. - Review of Systems Constitutional: No Fever Abdominal/Gastrointestinal: No Vomiting Objective Exam General Appearance: no apparent distress, alert Neurologic Exam: cooperative, other (nonverbal. limited facies. pt is wiping herself down with warm cloths but pauses to let me do exam.) Skin Exam: normal color, warm, dry, No rash Ears, Nose, Throat Exam: moist mucous membranes Neck Exam: normal inspection Respiratory Exam: normal breath sounds, lungs clear, No crackles/rales, No rhonchi, No wheezing Cardiovascular Exam: regular rate/rhythm, normal heart sounds, No murmur Gastrointestinal/Abdomen Exam: soft, normal bowel sounds, No tenderness, No distention, No mass, No guarding, No rebound Extremity Exam: normal inspection, No pedal edema, No swelling Back Exam: normal inspection, No rash OBJECTIVE DATA Vital Signs: Vital Signs - 24 hr Temp Pulse Resp BP BP Pulse Ox 04/29/21 08:23 60 16 107/68 04/29/21 07:00 97.3 F 60 16 82/50 97 04/29/21 03:52 97.4 F 55 L 19 102/61 98 04/29/21 00:00 97 F 65 20 108/61 97 04/28/21 20:00 97.9 F 62 16 105/54 98 04/28/21 16:00 98.2 F 68 19 93/58 97 04/28/21 12:00 97.0 F 47 L 82/53 99 Pain Assessment - Last Documented Pain Intensity 7 Pain Scale Used 0-10 Pain Scale Intake and Output: Intake & Output 04/26/21 04/27/21 04/28/21 04/29/21 11:59 11:59 11:59 11:59 Intake Total 120 2751 Output Total 300 1400 Balance -180 1351 Weight 96.2 kg Lab Results: Lab Results-Last 24 Hours 04/28/21 04/28/21 04/28/21 Range/Units 05:00 05:00 09:10 WBC (4.0-10.5) K/mm3 RBC (4.1-5.4) M/mm3 Hgb (12.0-16.0) gm/dl Hct (35-47) % MCV (78-100) fl MCH (26-32) pg MCHC (32-36) g/dl RDW (11.5-14.0) % Plt Count (150-450) K/mm3 MPV (7.5-11.0) fl Gran % (36.0-66.0) % Eos # (Auto) (0-0.5) Absolute Lymphs (auto) (1.0-4.6) Absolute Monos (auto) (0.0-1.3) Lymphocytes % (24.0-44.0) % Monocytes % (0.0-12.0) % Eosinophils % (0.00-5.0) % Basophils % (0.0-0.4) % Absolute Granulocytes (1.4-6.9) Basophils # (0-0.4) Sodium (137-145) mmol/L Potassium (3.5-5.1) mmol/L Chloride (98-107) mmol/L Carbon Dioxide (22-30) mmol/L Anion Gap (5-15) MEQ/L BUN (7-17) mg/dL Creatinine (0.52-1.04) mg/dL Estimated GFR ML/MIN Glucose (74-106) mg/dL POC Glucometer (74 to 106) mg/dL Calcium (8.4-10.2) mg/dL Magnesium (1.6-2.3) mg/dL Total Bilirubin (0.2-1.3) mg/dL AST (14-36) U/L ALT (0-35) U/L Alkaline Phosphatase (38-126) U/L Serum Total Protein (6.3-8.2) g/dL Albumin (3.5-5.0) g/dL Vitamin B12 338 (239-931) pg/mL TSH 3rd Generation (0.47-4.68) mIU/L Beta HCG, Quant < 2.39 mIU/ml Urine Color SULAIMAN (YELLOW) Urine Appearance SLIGHTLY CLOUDY (CLEAR) Urine pH 6.0 (5-6) Ur Specific Lim[place] 1.026 (1.005-1.025) Urine Protein NEGATIVE (Negative) Urine Ketones NEGATIVE (NEGATIVE) Urine Blood SMALL (0-5) Yung/ul Urine Nitrite NEGATIVE (NEGATIVE) Urine Bilirubin NEGATIVE (NEGATIVE) Urine Urobilinogen 4 (0-1) mg/dL Ur Leukocyte Esterase NEGATIVE (NEGATIVE) Urine WBC (Auto) NONE (0-5) /HPF Urine RBC (Auto) NONE (0-2) /HPF U Epithel Cells (Auto) RARE (FEW) /HPF Urine Bacteria (Auto) NONE (NEGATIVE) /HPF Urine Mucus (Auto) SLIGHT (NEGATIVE) /HPF Urine Culture Reflexed NO (NO) Urine Glucose NEGATIVE (NEGATIVE) mg/dL Urine Opiates Level (NEGATIVE) Ur Methadone (NEGATIVE) Urine Barbiturates (NEGATIVE) Ur Phencyclidine (PCP) (NEGATIVE) Urine Amphetamine (NEGATIVE) U Benzodiazepine Level (NEGATIVE) Urine Cocaine (NEGATIVE) Urine Marijuana (THC) (NEGATIVE) 04/28/21 04/28/21 04/28/21 Range/Units 09:15 17:25 17:25 WBC (4.0-10.5) K/mm3 RBC (4.1-5.4) M/mm3 Hgb (12.0-16.0) gm/dl Hct (35-47) % MCV (78-100) fl MCH (26-32) pg MCHC (32-36) g/dl RDW (11.5-14.0) % Plt Count (150-450) K/mm3 MPV (7.5-11.0) fl Gran % (36.0-66.0) % Eos # (Auto) (0-0.5) Absolute Lymphs (auto) (1.0-4.6) Absolute Monos (auto) (0.0-1.3) Lymphocytes % (24.0-44.0) % Monocytes % (0.0-12.0) % Eosinophils % (0.00-5.0) % Basophils % (0.0-0.4) % Absolute Granulocytes (1.4-6.9) Basophils # (0-0.4) Sodium (137-145) mmol/L Potassium (3.5-5.1) mmol/L Chloride (98-107) mmol/L Carbon Dioxide (22-30) mmol/L Anion Gap (5-15) MEQ/L BUN (7-17) mg/dL Creatinine (0.52-1.04) mg/dL Estimated GFR ML/MIN Glucose (74-106) mg/dL POC Glucometer 109 H 109 H (74 to 106) mg/dL Calcium (8.4-10.2) mg/dL Magnesium (1.6-2.3) mg/dL Total Bilirubin (0.2-1.3) mg/dL AST (14-36) U/L ALT (0-35) U/L Alkaline Phosphatase (38-126) U/L Serum Total Protein (6.3-8.2) g/dL Albumin (3.5-5.0) g/dL Vitamin B12 (239-931) pg/mL TSH 3rd Generation (0.47-4.68) mIU/L Beta HCG, Quant mIU/ml Urine Color (YELLOW) Urine Appearance (CLEAR) Urine pH (5-6) Ur Specific Lim[place] (1.005-1.025) Urine Protein (Negative) Urine Ketones (NEGATIVE) Urine Blood (0-5) Yung/ul Urine Nitrite (NEGATIVE) Urine Bilirubin (NEGATIVE) Urine Urobilinogen (0-1) mg/dL Ur Leukocyte Esterase (NEGATIVE) Urine WBC (Auto) (0-5) /HPF Urine RBC (Auto) (0-2) /HPF U Epithel Cells (Auto) (FEW) /HPF Urine Bacteria (Auto) (NEGATIVE) /HPF Urine Mucus (Auto) (NEGATIVE) /HPF Urine Culture Reflexed (NO) Urine Glucose (NEGATIVE) mg/dL Urine Opiates Level NEGATIVE (NEGATIVE) Ur Methadone NEGATIVE (NEGATIVE) Urine Barbiturates NEGATIVE (NEGATIVE) Ur Phencyclidine (PCP) NEGATIVE (NEGATIVE) Urine Amphetamine NEGATIVE (NEGATIVE) U Benzodiazepine Level POSITIVE (NEGATIVE) Urine Cocaine NEGATIVE (NEGATIVE) Urine Marijuana (THC) POSITIVE (NEGATIVE) 04/28/21 04/29/21 04/29/21 Range/Units 20:57 05:15 05:15 WBC 5.4 (4.0-10.5) K/mm3 RBC 4.16 (4.1-5.4) M/mm3 Hgb 13.8 (12.0-16.0) gm/dl Hct 41.3 (35-47) % MCV 99.3 (78-100) fl MCH 33.2 H (26-32) pg MCHC 33.4 (32-36) g/dl RDW 12.4 (11.5-14.0) % Plt Count 190 (150-450) K/mm3 MPV 11.5 H (7.5-11.0) fl Gran % 59.4 (36.0-66.0) % Eos # (Auto) 0.17 (0-0.5) Absolute Lymphs (auto) 1.50 (1.0-4.6) Absolute Monos (auto) 0.50 (0.0-1.3) Lymphocytes % 27.7 (24.0-44.0) % Monocytes % 9.2 (0.0-12.0) % Eosinophils % 3.1 (0.00-5.0) % Basophils % 0.6 (0.0-0.4) % Absolute Granulocytes 3.21 (1.4-6.9) Basophils # 0.03 (0-0.4) Sodium 140 (137-145) mmol/L Potassium 3.6 (3.5-5.1) mmol/L Chloride 113 H (98-107) mmol/L Carbon Dioxide 17 L (22-30) mmol/L Anion Gap 12.8 (5-15) MEQ/L BUN 11 (7-17) mg/dL Creatinine 0.73 (0.52-1.04) mg/dL Estimated GFR > 60.0 ML/MIN Glucose 104 (74-106) mg/dL POC Glucometer 87 (74 to 106) mg/dL Calcium 8.6 (8.4-10.2) mg/dL Magnesium 1.9 (1.6-2.3) mg/dL Total Bilirubin 0.80 (0.2-1.3) mg/dL AST 28 (14-36) U/L ALT 16 (0-35) U/L Alkaline Phosphatase 64 (38-126) U/L Serum Total Protein 6.7 (6.3-8.2) g/dL Albumin 4.0 (3.5-5.0) g/dL Vitamin B12 (239-931) pg/mL TSH 3rd Generation 0.445 L (0.47-4.68) mIU/L Beta HCG, Quant mIU/ml Urine Color (YELLOW) Urine Appearance (CLEAR) Urine pH (5-6) Ur Specific [place] (1.005-1.025) Urine Protein (Negative) Urine Ketones (NEGATIVE) Urine Blood (0-5) Yung/ul Urine Nitrite (NEGATIVE) Urine Bilirubin (NEGATIVE) Urine Urobilinogen (0-1) mg/dL Ur Leukocyte Esterase (NEGATIVE) Urine WBC (Auto) (0-5) /HPF Urine RBC (Auto) (0-2) /HPF U Epithel Cells (Auto) (FEW) /HPF Urine Bacteria (Auto) (NEGATIVE) /HPF Urine Mucus (Auto) (NEGATIVE) /HPF Urine Culture Reflexed (NO) Urine Glucose (NEGATIVE) mg/dL Urine Opiates Level (NEGATIVE) Ur Methadone (NEGATIVE) Urine Barbiturates (NEGATIVE) Ur Phencyclidine (PCP) (NEGATIVE) Urine Amphetamine (NEGATIVE) U Benzodiazepine Level (NEGATIVE) Urine Cocaine (NEGATIVE) Urine Marijuana (THC) (NEGATIVE) 04/29/21 Range/Units 07:55 WBC (4.0-10.5) K/mm3 RBC (4.1-5.4) M/mm3 Hgb (12.0-16.0) gm/dl Hct (35-47) % MCV (78-100) fl MCH (26-32) pg MCHC (32-36) g/dl RDW (11.5-14.0) % Plt Count (150-450) K/mm3 MPV (7.5-11.0) fl Gran % (36.0-66.0) % Eos # (Auto) (0-0.5) Absolute Lymphs (auto) (1.0-4.6) Absolute Monos (auto) (0.0-1.3) Lymphocytes % (24.0-44.0) % Monocytes % (0.0-12.0) % Eosinophils % (0.00-5.0) % Basophils % (0.0-0.4) % Absolute Granulocytes (1.4-6.9) Basophils # (0-0.4) Sodium (137-145) mmol/L Potassium (3.5-5.1) mmol/L Chloride (98-107) mmol/L Carbon Dioxide (22-30) mmol/L Anion Gap (5-15) MEQ/L BUN (7-17) mg/dL Creatinine (0.52-1.04) mg/dL Estimated GFR ML/MIN Glucose (74-106) mg/dL POC Glucometer 94 (74 to 106) mg/dL Calcium (8.4-10.2) mg/dL Magnesium (1.6-2.3) mg/dL Total Bilirubin (0.2-1.3) mg/dL AST (14-36) U/L ALT (0-35) U/L Alkaline Phosphatase (38-126) U/L Serum Total Protein (6.3-8.2) g/dL Albumin (3.5-5.0) g/dL Vitamin B12 (239-931) pg/mL TSH 3rd Generation (0.47-4.68) mIU/L Beta HCG, Quant mIU/ml Urine Color (YELLOW) Urine Appearance (CLEAR) Urine pH (5-6) Ur Specific [place] (1.005-1.025) Urine Protein (Negative) Urine Ketones (NEGATIVE) Urine Blood (0-5) Yung/ul Urine Nitrite (NEGATIVE) Urine Bilirubin (NEGATIVE) Urine Urobilinogen (0-1) mg/dL Ur Leukocyte Esterase (NEGATIVE) Urine WBC (Auto) (0-5) /HPF Urine RBC (Auto) (0-2) /HPF U Epithel Cells (Auto) (FEW) /HPF Urine Bacteria (Auto) (NEGATIVE) /HPF Urine Mucus (Auto) (NEGATIVE) /HPF Urine Culture Reflexed (NO) Urine Glucose (NEGATIVE) mg/dL Urine Opiates Level (NEGATIVE) Ur Methadone (NEGATIVE) Urine Barbiturates (NEGATIVE) Ur Phencyclidine (PCP) (NEGATIVE) Urine Amphetamine (NEGATIVE) U Benzodiazepine Level (NEGATIVE) Urine Cocaine (NEGATIVE) Urine Marijuana (THC) (NEGATIVE) Radiology Exams: Radiology Procedures Category Date Time Status HEAD WITHOUT CONTRAST [CT] Stat Exams 04/28/21 00:29 Completed MRA BRAIN WITHOUT CONTRAST [MRI] Routine Exams 04/29/21 07:27 Ordered MRI BRAIN W & W/O CONTRAST [MRI] Routine Exams 04/29/21 07:27 Ordered Assessment/Plan (1) Seizure Current Visit: Yes Status: Acute Assessment & Plan: Per teleneurology consult, started keppra 500mg po BID. Pt is also on topamax 50mg po BID. Code(s): R56.9 - UNSPECIFIED CONVULSIONS (2) Mutism Current Visit: Yes Status: Acute Assessment & Plan: having MRI today. Code(s): R47.01 - APHASIA (3) Anxiety Current Visit: No Status: Acute Assessment & Plan: ativan prior to MRI Code(s): F41.9 - ANXIETY DISORDER, UNSPECIFIED
[2021-04-29] MEDS ORDERED: KEPPRA 500 MG PO SCH (10:00)
[2021-04-29 12:21] VITALS: O2SAT 99
--- NOTE | 2021-04-29 13:51 | XRAY ---
Indication: Seizures. Multi-slab 3-D [id number] MRA pala of Klein performed. Comparison: None Distal internal carotid arteries are bilaterally symmetric without critical stenosis, obstruction, or AV malformation. Normal carotid terminus with normal branching A1 and M1 segments bilaterally. More distal anterior cerebral, middle cerebral, anterior communicating, and posterior communicating arteries are normal in MRA appearance. Distal vertebral arteries are bilaterally symmetric. Remaining basilar, left/right posterior cerebral, left/right superior cerebellar, and left/right anterior inferior cerebellar arteries are normal in MRA appearance. Impression: Negative MRA pala of Klein.
--- NOTE | 2021-04-29 14:25 | XRAY ---
Indication: Seizures. Negative recent CT head. Sagittal, coronal, and axial MRI brain performed using pre-and post T1, T2, FLAIR, diffusion, and ADC sequences. 20 cc Dotarem contrast used. Comparison: None Ventriculosulcal pattern appears symmetric. No acute intracranial hemorrhage, abnormal extra-axial fluid collection, or mass effect. Diffusion images are negative for restricted signal. Negative for mesial temporal sclerosis. Following gadolinium, there is no abnormal enhancing intra or extra-axial mass. Fourth ventricle is midline without hydrocephalus. 7/8 cranial nerve complex bilaterally symmetric. Normal flow void signal within the major intracerebral circulation. Normal appearing craniocervical junction and sella turcica. Visualized paranasal sinuses are clear. Impression: MRI brain with contrast exam is negative.
[2021-04-29] MEDS ORDERED: Ativan 1 MG PO ONE (16:18)
[2021-04-29 16:36] VITALS: BP 117/73; PULSE 69
== END 2021-04-29 17:09 | disposition home or self-care (01) ==
LOC: ED 00:21 → MED SURG 05:36
PROVIDERS: ADMIT Family Medicine; ATTEND Family Medicine
DX: R56.9 Unspecified convulsions (principal); R55 Syncope and collapse; F31.9 Bipolar disorder, unspecified; F41.9 Anxiety disorder, unspecified; R47.01 Aphasia; R51.9 Headache, unspecified; Z79.899 Other long term (current) drug therapy; Z20.828 Contact with and (suspected) exposure to other viral communicable diseases
CPT/HCPCS: 0241U; 36000; 36415; 70450; 70544; 70553; 80053; 80307; 81001; 82607; 82947; 83605; 83735; 84443; 84702; 85025; 94760; 95812; 96374; 96375; 99284; G0378; Q3014; J1953; J2060; J2405; A9270-GY

== ENCOUNTER 2021-07-06 14:21 | Emergency (ER) | payer OTHER ==
[2021-07-06] MEDS ORDERED: Sodium Chloride 0.9% 1000 ML 1,000 ML IV STA (14:41)
[2021-07-06] MEDS ORDERED: Keppra 500 MG/5 ML*** 1,000 MG in D5w 100ML Mini Bag 100 ML 100 ML IV ONE (14:41)
[2021-07-06] MEDS ORDERED: Hydromorphone 1 mg/ml Injection IV ONE (14:44)
[2021-07-06] MEDS ORDERED: Sodium Chloride 0.9% 1000 ML 1,000 ML ONE (14:59)
[2021-07-06] MEDS ORDERED: Hydromorphone 1 mg/ml Injection ONE (14:59)
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
--- NOTE | 2021-07-06 15:16 | XRAY ---
Indication: Seizure with posterior head trauma. History seizures. Multiple contiguous axial images obtained through the head without contrast. Comparison: April 28, 2021. Normal appearing brain parenchyma, ventricles, and bony calvarium. Visualized paranasal sinuses and mastoid air cells are clear. Impression: Continued normal CT head without contrast exam.
[2021-07-06 15:35] LABS: Absolute Neutrophil Ct (ANC) 11.43 (1.4-6.9); Basophil (Absolute #) 0.02 (0-0.4); Eosinophil % 0.1 % (0.00-5.0); Eosinophil (Absolute #) 0.02 (0-0.5); Hematocrit 44.8 % (35-47); Hemoglobin 15.4 gm/dl (12.0-16.0); Lymphocyte (Absolute #) 1.09 (1.0-4.6); Lymphocytes % 8.1 % (24.0-44.0); Mean Cell Volume 96.1 fl (78-100); Mean Corpuscular Hgb Concent. 34.4 g/dl (32-36); Mean Platelet Volume 11.3 fl (7.5-11.0); Monocyte (Absolute #) 0.87 (0.0-1.3); Monocytes % 6.5 % (0.0-12.0); Neutrophil % 85.2 % (36.0-66.0); Platelet Count 189 K/mm3 (150-450); Red Blood Count 4.66 M/mm3 (4.1-5.4); Red Cell Distribution Width 12.6 % (11.5-14.0); White Blood Count 13.4 K/mm3 (4.0-10.5)
[2021-07-06 15:38] LABS: ALBUMIN 4.8 g/dL (3.5-5.0); ALKALINE PHOSPHATASE 72 U/L (38-126); ANION GAP 12.4 MEQ/L (5-15); BLOOD UREA NITROGEN 8 mg/dL (7-17); CHLORIDE 108 mmol/L (98-107); Calcium 9.3 mg/dL (8.4-10.2); Carbon Dioxide 24 mmol/L (22-30); Creatinine 1 0.64 mg/dL (0.52-1.04); EST GLOMERULAR FILTRATION RATE > 60.0 ML/MIN; Glucose 96 mg/dL (74-106); Potassium 3.5 mmol/L (3.5-5.1); SGOT/AST 24 U/L (14-36); SGPT/ALT 12 U/L (0-35); SODIUM 141 mmol/L (137-145)
[2021-07-06 17:17] VITALS: O2SAT 100
[2021-07-06] MEDS ORDERED: TORAdol 30 mg Injection IV ONE (17:17)
[2021-07-06] MEDS ORDERED: TORAdol 30 mg Injection ONE (17:19)
[2021-07-06 17:25] VITALS: BP 104/70; PULSE 56
== END 2021-07-06 17:28 | disposition home or self-care (01) ==
LOC: ED 14:21
DX: G40.909 Epilepsy, unspecified, not intractable, without status epilepticus (principal); R51.9 Headache, unspecified; Z79.899 Other long term (current) drug therapy
CPT/HCPCS: 36000; 36415; 70450; 80053; 83605; 84146; 85025; 96360; 96374; 96375; 99284; J1170; J1885; J1953

== ENCOUNTER 2021-08-26 00:04 | Emergency (ER) | payer OTHER ==
[2021-08-26] MEDS ORDERED: MORPHINE SULFATE 4 MG INJ IV ONE ×2 (00:41→01:40)
[2021-08-26] MEDS ORDERED: Zofran 4 MG/2 ML VIAL IV ONE (00:54)
[2021-08-26] MEDS ORDERED: MORPHINE SULFATE 4 MG INJ ONE ×2 (00:56→01:45)
[2021-08-26] MEDS ORDERED: Zofran 4 MG/2 ML VIAL ONE (00:56)
[2021-08-26 01:05] LABS: Basophil (Absolute #) 0.03 (0-0.4); Eosinophil % 0.7 % (0.00-5.0); Eosinophil (Absolute #) 0.09 (0-0.5); Hematocrit 44.7 % (35-47); Hemoglobin 15.4 gm/dl (12.0-16.0); Lymphocyte (Absolute #) 1.59 (1.0-4.6); Mean Cell Volume 95.7 fl (78-100); Mean Corpuscular Hgb Concent. 34.5 g/dl (32-36); Mean Platelet Volume 11.2 fl (7.5-11.0); Monocyte (Absolute #) 0.72 (0.0-1.3); Monocytes % 5.9 % (0.0-12.0); Neutrophil % 80.2 % (36.0-66.0); Platelet Count 215 K/mm3 (150-450); Red Blood Count 4.67 M/mm3 (4.1-5.4); Red Cell Distribution Width 13.3 % (11.5-14.0); White Blood Count 12.2 K/mm3 (4.0-10.5)
[2021-08-26 01:15] LABS: ALBUMIN 4.7 g/dL (3.5-5.0); ALKALINE PHOSPHATASE 81 U/L (38-126); ANION GAP 16.6 MEQ/L (5-15); BLOOD UREA NITROGEN 8 mg/dL (7-17); CHLORIDE 109 mmol/L (98-107); Calcium 8.9 mg/dL (8.4-10.2); Carbon Dioxide 19 mmol/L (22-30); Creatinine 1 0.65 mg/dL (0.52-1.04); EST GLOMERULAR FILTRATION RATE > 60.0 ML/MIN; Glucose 100 mg/dL (74-106); Potassium 3.1 mmol/L (3.5-5.1); SGOT/AST 23 U/L (14-36); SGPT/ALT 11 U/L (0-35); SODIUM 142 mmol/L (137-145); Total Protein 7.8 g/dL (6.3-8.2)
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
[2021-08-26] MEDS ORDERED: Klor Con 10 MEQ PO ONE ×2 (02:31→02:52)
[2021-08-26 02:36] LABS: Appearance CLEAR (CLEAR); Bacteria RARE /HPF (NEGATIVE); Bilirubin NEGATIVE (NEGATIVE); Epithelial Cells RARE /HPF (FEW); Glucose NEGATIVE (NEGATIVE); Ketones NEGATIVE (NEGATIVE); Mucus SLIGHT /HPF (NEGATIVE); RBC 0-2 /HPF (0-2); WBC 0-2 /HPF (0-5)
[2021-08-26 02:37] LABS: Nitrite NEGATIVE (NEGATIVE); Protein,Urine Dip NEGATIVE (Negative); RBC NEGATIVE Ery/ul (0-5); Specific Gravity 1.025 (1.005-1.025); Urine Cultured Indicated? NO; Urobilinogen 0.2 mg/dL (0-1)
[2021-08-26 02:38] LABS: Dipstick done @ ? MAIN LAB
[2021-08-26] MEDS ORDERED: Magnesium 1 Gm / 100 Ml D5W*** 100 ML IV ONE ×2 (02:52→03:36)
[2021-08-26 02:53] LABS: Amphetamine,Urine NEGATIVE (NEGATIVE); Barbiturate,Urine NEGATIVE (NEGATIVE); Benzodiazepine,Urine NEGATIVE (NEGATIVE); Cocaine,Urine NEGATIVE (NEGATIVE); Methadone,Urine NEGATIVE (NEGATIVE); Opiate,Urine POSITIVE (NEGATIVE); PCP,Urine NEGATIVE (NEGATIVE); THC,Urine POSITIVE (NEGATIVE)
[2021-08-26] MEDS: Magnesium 1 Gm / 100 Ml D5W*** 100 ML IV SCH ×2 (02:55→03:38)
[2021-08-26] MEDS ORDERED: NORCO 5/325 MG PO ONE (05:06)
[2021-08-26 05:08] VITALS: O2SAT 100
[2021-08-26] MEDS ORDERED: NORCO 5/325 MG ONE (05:10)
[2021-08-26 05:24] VITALS: BP 120/79; PULSE 62
[2021-08-26] MEDS ORDERED: BACIGUENT 30 GM TP SCH (10:00)
== END 2021-08-26 05:32 | disposition home or self-care (01) ==
LOC: ED 00:04
DX: R56.9 Unspecified convulsions (principal); S00.532A Contusion of oral cavity, initial encounter; X58.XXXA Exposure to other specified factors, initial encounter; Y92.003 Bedroom of unspecified non-institutional (private) residence as the place of occurrence of the external cause; T22.251A Burn of second degree of right shoulder, initial encounter; E87.6 Hypokalemia; D72.829 Elevated white blood cell count, unspecified
CPT/HCPCS: 36000; 36415; 80053; 80201; 80307; 81015; 84484; 85025; 94760; 96365; 96374; 99284; J2270; J2405; J3475; A9270-GY

== ENCOUNTER 2021-08-26 16:40 | Emergency (ER) | payer OTHER ==
[2021-08-26 17:01] VITALS: BP 106/72; PULSE 67; O2SAT 97
[2021-08-26] MEDS ORDERED: TORAdol 30 mg Injection IM ONE (17:16)
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
[2021-08-26] MEDS ORDERED: TORAdol 30 mg Injection ONE (17:38)
== END 2021-08-26 17:49 | disposition home or self-care (01) ==
LOC: ED 16:40
DX: T22.251A Burn of second degree of right shoulder, initial encounter (principal); T21.23XA Burn of second degree of upper back, initial encounter; T20.17XA Burn of first degree of neck, initial encounter
CPT/HCPCS: 96372; 99283; J1885

== ENCOUNTER 2021-09-18 14:47 | Emergency (ER) | payer OTHER ==
[2021-09-18 15:08] VITALS: BP 107/77; PULSE 71; O2SAT 98
[2021-09-18 15:31] LABS: Bacteria RARE /HPF (NEGATIVE); Epithelial Cells RARE /HPF (FEW); Mucus SLIGHT /HPF (NEGATIVE); RBC 0-2 /HPF (0-2)
[2021-09-18 15:34] LABS: Appearance CLEAR (CLEAR); Bilirubin NEGATIVE (NEGATIVE); Glucose NEGATIVE (NEGATIVE); Ketones NEGATIVE (NEGATIVE); Ph 5.5 (5-6); Protein,Urine Dip NEGATIVE (Negative); RBC NEGATIVE Ery/ul (0-5); Specific Gravity >=1.030 (1.005-1.025)
[2021-09-18 15:35] LABS: Dipstick done @ ? MAIN LAB; Nitrite NEGATIVE (NEGATIVE); Urine Cultured Indicated? NO; Urobilinogen 0.2 mg/dL (0-1)
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
== END 2021-09-18 16:00 | disposition home or self-care (01) ==
LOC: ED 14:47
DX: R30.0 Dysuria (principal); R10.2 Pelvic and perineal pain; R35.0 Frequency of micturition; R39.15 Urgency of urination; M54.9 Dorsalgia, unspecified
CPT/HCPCS: 81015; 99283